=== PATIENT | male | born 1985 | race African-American/Black ===

== ENCOUNTER 2018-04-05 20:59 | Emergency (ER) | payer SELFPAY ==
--- NOTE | 2018-04-05 21:40 | RAD ---
CHEST TWO VIEWS: 04/05/18 HISTORY: Cough. Heart size and mediastinum are within normal limits. The lungs are clear of infiltrates. No significa nt bony findings. IMPRESSION: No active intrathoracic disease. POS: [facility]
== END 2018-04-05 23:35 | disposition home or self-care (01) ==
LOC: ERS 20:59
DX: J20.9 Acute bronchitis, unspecified (principal); F17.210 Nicotine dependence, cigarettes, uncomplicated
CPT/HCPCS: 71046; J7620